=== PATIENT | female | born 1980 | race Caucasian/White ===

== ENCOUNTER 2024-06-15 11:24 | Emergency (ER) | payer MEDICAID, SELFPAY ==
--- NOTE | ~2024-06-15 | US_ITS ---
EXAMINATION: US TRIPLEX LOWER EXTREMITY, LEFT CLINICAL INFORMATION: Left calf pain, recent travel, rule out DVT. COMPARISON: None available. TECHNIQUE: Color-flow triplex imaging with spectral analysis and compression Doppler were performed on the left lower extremity. FINDINGS: Respiratory variation, normal compression and augmented flow are noted throughout the left lower extremity. The visualized common femoral vein, superficial femoral vein, profunda femoral vein, popliteal vein and midcalf peroneal and posterior tibial venous segments show no evidence of deep venous thrombosis. There is no Rock's cyst. US/US venous duplex LE LT IMPRESSION: No evidence of deep venous thrombosis involving the left lower extremity. Electronically signed by: Phi Zamorano MD 06/15/2024 02:29 PM EDT
--- NOTE | ~2024-06-15 | XR_ITS ---
EXAMINATION: XR CHEST CLINICAL INFORMATION: chest pain COMPARISON: None available. TECHNIQUE: 2 views of the chest were obtained. FINDINGS: No significant abnormality is noted involving the heart, lungs, mediastinum, bony thorax or soft tissues. XR/XR chest 2V IMPRESSION: Unremarkable chest examination. Electronically signed by: Jonathan Osborne MD 06/15/2024 12:47 PM EDT RP
[2024-06-15 11:38] VITALS: BP 126/80; BP 151/75; PULSE 66; PULSE 76; RESP 18; TEMP 36.8; O2SAT 97; O2SAT 99; BMI 34.8
--- NOTE | 2024-06-15 11:42 | ECG_ITS ---
Test Reason : cp Blood Pressure : */* mmHG Vent. Rate : 64 BPM Atrial Rate : 64 BPM P-R Int : 140 ms QRS Dur : 86 ms QT Int : 396 ms P-R-T Axes : 29 40 28 degrees QTcB Int : 408 ms Normal sinus rhythm Normal ECG No previous ECGs available Referred By: Generic ED Physician Electronically Signed By: RIOS ALFARO
--- NOTE | 2024-06-15 11:42 | ED.CHESTPAIN ---
HPI - Chest Pain General Chief Complaint: Chest Pain Stated Complaint: CP X20M,SOB/RESOLVED PER EMS Time Seen by Provider: 06/15/24 11:37 Source: patient and EMS Mode of arrival: EMS Limitations: no limitations History of Present Illness ED Provider: ANGELA BEY PA-C HPI narrative: 44-year-old female presents to the ED today via ambulance for evaluation of chest pain that began approximately 20 minutes prior to arrival. Patient reports pressure/sharp sternal chest pain that radiated to her epigastric area and back with associated shortness of breath, improving since onset. She now only endorses slight discomfort to the area rated 3/10. Patient reports symptoms lasted for 20 minutes. Patient states that she was sitting at the time of symptom onset. Reports driving from [place] to [place] over night last night. She arrived around 0800 this morning and began to experience chest pain around 1100. Reports associated left calf discomfort described as a cramping sensation. Patient reports history of similar symptoms 1 year ago which resolved on their own. She did not seek medical attention at that time. Patient denies any fever, chills, cough, wheezing, N/V/D, urinary symptoms. Patient denies blood thinner use, tobacco use, alcohol use, or other illicit drugs. No hx of VTE. Admits mother had an NV in her 70's. No personal cardiac hx. Related Data Allergies Allergy/AdvReac Type Severity Reaction Status Date / Time No Known Allergies Allergy Unknown Verified 06/15/24 11:41 Review of Systems Review of Systems: Yes all other systems are reviewed and are negative [facility] Past Medical History Attestation statement: The following information was validated with the patient. Source: old records reviewed and nursing notes reviewed Social History Social History Smoked in Last 30 Days: No Use of substances other than those prescribed or required for medical reasons: No Advance Directives: No Advance Directives Information Provided: No Do you have a plan to hurt others: No Plan Patient : No Physical Exam Vital Signs: Vital Signs: Last Vital Signs Temp 98.3 F 06/15/24 11:38 Pulse 66 06/15/24 11:38 Resp 18 06/15/24 11:38 BP 126/80 06/15/24 11:38 Pulse Ox 99 06/15/24 11:38 O2 Del Method Room Air 06/15/24 11:38 BMI result Body Mass Index 34.8 Vital signs stable General: Well appearing, in no acute distress. Skin: Warm, dry, intact. No rashes or lesions. Head: Normocephalic, atraumatic. EENT: Hearing is intact b/l. Conjunctiva clear. Sclera is anicteric. Neck: Supple without LAD.? Cardiac: Chest wall symmetric. RRR. No TTP anterior chest Lungs: Normal respiratory effort without accessory muscle use. CTA bilaterally. Abdomen: Soft, non-tender, non-distended. No rebound tenderness or guarding. Positive BS x4. Back: No midline spinous or paraspinal tenderness. No step off deformity. Ext: +TTP of left calf. Upper and lower extremities atraumatic, without deformity, swelling or erythema. Full ROM throughout. Strength 5/5 throughout. Neuro: AOx3. Normal speech. Sensation intact to light touch. Course Course Course Narrative: 1442 -- CBC without leukocytosis or left shift. No anemia. H&H stable. Chemistry without acute electrolyte abnormality requiring intervention. No PEPE. Liver function WNL. Lipase WNL. Initial troponin WNL. Delta troponin pending. EKG showing normal sinus rhythm, rate of 64 beats per minute, no acute ischemic changes or ST elevations. Negative COVID, flu, RSV. Chest x-ray without infiltrate or consolidation to suggest pneumonia. No effusion. No cardiomegaly. Venous duplex without evidence of DVT. No Rock's cyst. Essentially unremarkable. > on re-evaluation, patient reports resolution of symptoms after receiving Tylenol. She states she feels well. Troponin pending. Anticipate discharge home. 1710 -- delta troponin flat. Patient has remained stable throughout ED visit today. Discussed worrisome signs and symptoms and when to return to the ED. All questions answered at this time. Patient is agreeable with disposition and stable for discharge. Medications Administered Discontinued Medications Generic Name Dose Route Start Last Admin Trade Name Freq PRN Reason Stop Dose Admin Acetaminophen 975 mg 06/15/24 12:40 06/15/24 12:58 Acetaminophen 325 Mg Tablet PO 06/15/24 12:41 975 mg ONCE ONE Administration Medical Decision Making Medical Decision Making MDM Narrative: 44-year-old female presents to the ED today via ambulance for evaluation of chest pain that began approximately 20 minutes prior to arrival. Vital signs stable. Not hypoxic or tachycardic. Afebrile. She is nontoxic appearing in no acute distress. On exam, there is no reproducible chest wall tenderness to palpation. RRR. No respiratory distress, no tripoding. Lungs are CTA bilaterally. There is mild tenderness over left calf without overlying skin changes. No pitting edema. History without high risk features (not substernal, no exertional component, not relieved with rest).? Minimal CAD risk factors (including age). Exam without evidence of volume overload. EKG without signs of active ischemia. HEART score: 1.? Given the timing of pain to ED presentation, plan to send delta troponin to evaluate for NSTEMI. Differential diagnosis also includes anemia, electrolyte abnormality, costochondritis, msk pain, pneumonia, pleurisy, GERD, PE, DVT Presentation not consistent with pneumothorax, thoracic aortic dissection, cardiac effusion or tamponade, myocarditis, pericarditis. Plan: labs, troponin, EKG, CXR, pain control, reassessment Differential Diagnosis Differential Diagnoses: The differential diagnosis associated with the presentation includes As above Admission/Observation Not indicated Lab Data MDM Lab Attestation statement: I reviewed the patient's lab results. As above 06/15/24 12:06 06/15/24 12:07 Labs: Lab Results 06/15/24 06/15/24 06/15/24 Range/Units 12:06 12:07 12:16 WBC 5.8 (4.8-10.8) X10*3/uL RBC 4.39 (4.20-5.50) X10*6/uL Hgb 12.5 (12.0-16.0) g/dl Hct 37.8 (37.0-47.0) % MCV 86.1 (80.0-98.0) fL MCH 28.5 (27.0-33.0) pg MCHC 33.1 (31.0-35.0) g/dl RDW 13.9 (11.0-16.0) % Plt Count 280 (160-400) X10*3/uL MPV 11.1 (9.4-12.3) fL Immature Gran % (Auto) 0.3 (0.0-0.4) % Neut % (Auto) 62.8 (45-73) % Lymph % (Auto) 25.9 (20-40) % Howard % (Auto) 7.3 (2-11) % Eos % (Auto) 3.0 (0-4) % Baso % (Auto) 0.7 (0-2) % Lymph # (Auto) 1.5 (1.2-4.9) X10*3/uL Howard # (Auto) 0.4 (0.1-1.2) X10*3/uL Eos # (Auto) 0.2 (0.0-0.4) X10*3/uL Baso # (Auto) 0.0 (0.0-0.2) X10*3/uL Abs Immat Gran (auto) 0.02 (0.00-0.03) X10*3/uL Absolute Neuts (auto) 3.6 (2.0-8.3) x10*3/uL Absolute Nucleated RBC 0.000 (0.0-0.012) X10*3/uL Nucleated RBC % (auto) 0.0 (0.0-0.2) /100WBC D-Dimer High Sensitivty < 150 NG/ML Sodium 140 (135-145) mmol/L Potassium 4.2 (3.3-5.1) mmol/L Chloride 105 (96-108) mmol/L Carbon Dioxide 28 (22-29) mmol/L Anion Gap 11 L (12-20) BUN 9 (9-16) mg/dL Creatinine 0.79 (0.5-1.4) mg/dL Estim Creat Clear Calc 109.3 Estimated GFR > 60 Random Glucose 110 (60-115) mg/dL Calcium 9.4 (8.4-10.2) mg/dL Magnesium 1.9 (1.6-2.6) mg/dL Total Bilirubin 0.2 (0.0-1.0) mg/dL AST 23 (5-31) U/L ALT 26 (0-31) U/L Troponin I High Sens < 2.7 (<3.5-17.0) ng/L Total Protein 7.0 (6.5-8.0) g/dL Albumin 4.2 (3.5-5.0) g/dL Lipase 21 (8-78) U/L Influenza Type A (PCR) NEGATIVE (Negative) Influenza Type B (PCR) NEGATIVE (Negative) RSV RNA Qual (PCR) NEGATIVE (Negative) SARS-CoV-2 RNA (RT-PCR) NEGATIVE (Negative) 06/15/24 Range/Units 15:18 WBC (4.8-10.8) X10*3/uL RBC (4.20-5.50) X10*6/uL Hgb (12.0-16.0) g/dl Hct (37.0-47.0) % MCV (80.0-98.0) fL MCH (27.0-33.0) pg MCHC (31.0-35.0) g/dl RDW (11.0-16.0) % Plt Count (160-400) X10*3/uL MPV (9.4-12.3) fL Immature Gran % (Auto) (0.0-0.4) % Neut % (Auto) (45-73) % Lymph % (Auto) (20-40) % Howard % (Auto) (2-11) % Eos % (Auto) (0-4) % Baso % (Auto) (0-2) % Lymph # (Auto) (1.2-4.9) X10*3/uL Howard # (Auto) (0.1-1.2) X10*3/uL Eos # (Auto) (0.0-0.4) X10*3/uL Baso # (Auto) (0.0-0.2) X10*3/uL Abs Immat Gran (auto) (0.00-0.03) X10*3/uL Absolute Neuts (auto) (2.0-8.3) x10*3/uL Absolute Nucleated RBC (0.0-0.012) X10*3/uL Nucleated RBC % (auto) (0.0-0.2) /100WBC D-Dimer High Sensitivty NG/ML Sodium (135-145) mmol/L Potassium (3.3-5.1) mmol/L Chloride (96-108) mmol/L Carbon Dioxide (22-29) mmol/L Anion Gap (12-20) BUN (9-16) mg/dL Creatinine (0.5-1.4) mg/dL Estim Creat Clear Calc Estimated GFR Random Glucose (60-115) mg/dL Calcium (8.4-10.2) mg/dL Magnesium (1.6-2.6) mg/dL Total Bilirubin (0.0-1.0) mg/dL AST (5-31) U/L ALT (0-31) U/L Troponin I High Sens < 2.7 (<3.5-17.0) ng/L Total Protein (6.5-8.0) g/dL Albumin (3.5-5.0) g/dL Lipase (8-78) U/L Influenza Type A (PCR) (Negative) Influenza Type B (PCR) (Negative) RSV RNA Qual (PCR) (Negative) SARS-CoV-2 RNA (RT-PCR) (Negative) Independent Interpretation I performed an independent interpretation of an: EKG, Plain X-Ray and Ultrasound Interpretation: Chest x-ray without infiltrate or consolidation EKG showing normal sinus rhythm, rate of 64 beats per minute, no acute ischemic changes or ST elevations Venous duplex left lower extremity without clot Radiology Impression Discussion of test interpretation with radiology: I have reviewed the radiologist's reading. Radiologist Impression: Procedure(s): US venous duplex LE LT Accession Number(s): [id number] cc: Physician,Unknown ; Angela Bey~ EXAMINATION: US TRIPLEX LOWER EXTREMITY, LEFT CLINICAL INFORMATION: Left calf pain, recent travel, rule out DVT. COMPARISON: None available. TECHNIQUE: Color-flow triplex imaging with spectral analysis and compression Doppler were performed on the left lower extremity. FINDINGS: Respiratory variation, normal compression and augmented flow are noted throughout the left lower extremity. The visualized common femoral vein, superficial femoral vein, profunda femoral vein, popliteal vein and midcalf peroneal and posterior tibial venous segments show no evidence of deep venous thrombosis. There is no Rock's cyst. US/US venous duplex LE LT IMPRESSION: No evidence of deep venous thrombosis involving the left lower extremity. Electronically signed by: Phi Zamorano MD 06/15/2024 02:29 PM EDT Procedure(s): XR chest 2V Accession Number(s): [id number] cc: Physician,Unknown ; Angela Bey~ EXAMINATION: XR CHEST CLINICAL INFORMATION: chest pain COMPARISON: None available. TECHNIQUE: 2 views of the chest were obtained. FINDINGS: No significant abnormality is noted involving the heart, lungs, mediastinum, bony thorax or soft tissues. XR/XR chest 2V IMPRESSION: Unremarkable chest examination. Independent Historian Clinical information obtained from an independent historian. History obtained from or confirmed by: Spouse and Parent (mom) Prescription Management I considered prescription management with: Pain Medication Social Determinants Patient?s care significantly limited by Social Determinants of Health including: Other Social Determinant of Health Critical Care Time Critical Care Time Critical Care Time: No Discharge Plan Discharge Clinical Impression: Atypical chest pain Patient Disposition: Home, Self-Care Instructions: Noncardiac Chest Pain (ED), Chest Wall Pain (ED) Additional Instructions: You were evaluated in the Emergency Department today for chest pain. Your evaluation has shown no signs of medical conditions requiring emergent intervention at this time. Your labs are reassuring. Your chest x-ray is normal. You tested negative for COVID, flu, RSV. The ultrasound of your left leg is normal. You may take Tylenol or Motrin as needed for pain. I recommend that you follow up with your primary care provider or your outboard motor mechanic as soon as possible for further testing as an outpatient. If you do not have one, a referral has been provided. Please call them to make an appointment, they will not call you. Return to the Emergency Department if you experience worsening or uncontrolled chest pain, shortness of breath, light headedness, feeling faint, nausea, vomiting, or any other concerning symptoms. Referrals: Physician,Unknown J [Primary Care Provider] - Print Language: Welsh
[2024-06-15 12:12] LABS: MANUAL DIFF FLAG NO
[2024-06-15 12:15] LABS: Basophils Percent Auto 0.7 % (0-2); Eosinophils Absolute Auto 0.2 X10*3/uL (0.0-0.4); Hematocrit 37.8 % (37.0-47.0); Hemoglobin 12.5 g/dl (12.0-16.0); Imm Gran Abs Auto 0.02 X10*3/uL (0.00-0.03); Imm Gran Pct Auto 0.3 % (0.0-0.4); Lymphocytes Absolute Auto 1.5 X10*3/uL (1.2-4.9); Lymphocytes Percent Auto 25.9 % (20-40); Mean Corpuscular HGB Conc 33.1 g/dl (31.0-35.0); Mean Corpuscular Hemoglobin 28.5 pg (27.0-33.0); Mean Corpuscular Volume 86.1 fL (80.0-98.0); Mean Platelet Volume 11.1 fL (9.4-12.3); Monocytes Absolute Auto 0.4 X10*3/uL (0.1-1.2); Monocytes Percent Auto 7.3 % (2-11); Neutrophils Absolute Auto 3.6 x10*3/uL (2.0-8.3); Neutrophils Percent Auto 62.8 % (45-73); Platelet Count 280 X10*3/uL (160-400); Red Blood Count 4.39 X10*6/uL (4.20-5.50); Red Cell Distribution Width 13.9 % (11.0-16.0); White Blood Count 5.8 X10*3/uL (4.8-10.8)
[2024-06-15 12:29] LABS: Anion Gap 11 (12-20)
[2024-06-15 12:37] LABS: D Dimer High Sensitivity < 150 NG/ML
[2024-06-15 12:46] LABS: Alanine Aminotransferase 26 U/L (0-31); Albumin Level 4.2 g/dL (3.5-5.0); Aspartate Amino Transferase 23 U/L (5-31); Bilirubin Total 0.2 mg/dL (0.0-1.0); Blood Urea Nitrogen 9 mg/dL (9-16); Calcium 9.4 mg/dL (8.4-10.2); Carbon Dioxide 28 mmol/L (22-29); Chloride 105 mmol/L (96-108); Creatinine Clr Calc Pharmacy 109.3; Estimated Glomerular Filt Rate > 60; Glucose Random 110 mg/dL (60-115); Magnesium 1.9 mg/dL (1.6-2.6); Potassium 4.2 mmol/L (3.3-5.1); Sodium 140 mmol/L (135-145); Troponin-I High Sensitivity < 2.7 ng/L (<3.5-17.0)
[2024-06-15] MEDS: Acetaminophen 325 MG TABLET 975 MG PO (12:58)
[2024-06-15 12:59] LABS: Influenza A PCR NEGATIVE (Negative); Influenza B PCR NEGATIVE (Negative); Resp Syncy Virus RNA Qual PCR NEGATIVE (Negative); SARS COV2 PCR INHOUSE NEGATIVE (Negative)
--- OUTSIDE RECORDS SUMMARY | 2024-06-15 13:41 | XMS_ITS | Data Portability ---
Author Organization [facility], [employer], Main Office Address [id number] [employer] [place] [address] Assessment Encounter Date Assessment Date Assessment LastModified by Organization Details LastModified Time 03/05/2022 03/05/2022 Annual gynecological exam performed. Patient will come back in a year unless there are new symptoms. Pleasant 41 yo female coming as a new patient for [employer] Reports h/o hyperlipidemia, hypothyroidism, AUB Menstrual periods are regular, but painful, heavy with clots. It last 6 days from which 3 days is heavy PSH: lipo, 1 C-sec and tubal ligation She is sexually active reports on and off pain with sexul intercourse Last pap: > 15 years ago Mammogram; Never Denies h/o fibroids and or endometriosis Patient is a former smoker Exam: Probably Nabothian cysts in the cervix Plan/Assessment: 1. menorrhagia: TVUS ordered depending on results will discuss possible OCPs and or tranexamic acid for the first 3 days of her menstrual period 2. Referred to GI for screening colonoscopy (Mom h/o Colon CA) 3. Referred to Genetic counseling (Mom and maternal aunt H/O Breast CA) 4. Screening mammogram to be done around 06/2022 5. Pap obtained 6. patient will be called with test results [email or web address] Not available 03/05/2022 10:00:44 Plan of Treatment Reminders Order Date Submit Date Provider Last Modified By Organization Details Last Modified Time Details Appointments None recorded. Lab pap, LB + HPV mRNA E6/E7 + reflex HPV (16+18+45) 2022 023 [facility], [address] [place], [address], 3 04:34:39 Referral genetic counselor referral 2022 023 [email or web address] Not available 3 11:23:08 gastroenter ologist referral - family history of colon cancer / mother 2022 023 [email or web address] Not available 3 12:17:11 Procedures None recorded. Surgeries None recorded. Imaging MAMMO, screening, digital, bilateral - to done after 06-11-20222022 023 [email or web address] Formerly [facility] [place], [address], [place], [address], 3 09:36:00 US, transvagina l 2022 023 [email or web address] Formerly [facility] [place], [address], [place], [address], 3 11:22:34 Medication Orders None recorded. Patient TargetsNo targets recorded. Patient InstructionsNo instructions recorded. 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 Referral for Screening for malignant neoplasm of colon family history of colon cancer / mother Referring Physician: Taurus Judd, Encounter Date: 03/05/2022 Genetic Counselor Referral f or Family history of breast cancer Referring Physician: Taurus Judd, Encounter Date: 03/05/2022 Results Created Date Observation Date Name Description Value Unit Range Abnormal Flag Note LastModifiedBy Organization Detail LastModifiedTime 03/05/1903/08/2022 THINP REP PAP AND HPV MRNA E6/E7 W/RFL HPV 16,18 /45 clinical information: normal None given Not Available [facility] [place] [facility] [address] [place], [address], 03/08/2022 04:34:39 03/05/19 23 03/08/2022 THINP REP PAP AND HPV MRNA E6/E7 W/RFL HPV 16,18 /45 LMP: normal None given Not Available [facility] [place] [facility] [address], [place], [address], 03/08/2022 04:34:39 03/05/1903/08/2022 THINP REP PAP AND HPV MRNA E6/E7 W/RFL HPV 16,18 /45 prev. Pap: normal 02/19 Not Available [facility] [place] [facility] [address], [place], [address], 03/08/2022 04:34:39 03/05/19 23 03/08/2022 THINP REP PAP AND HPV MRNA E6/E7 W/RFL HPV 16,18 /45 prev. BX: normal None given Not Available [facility] [place] [facility] [address], [place], [address], 03/08/2022 04:34:39 03/05/1903/08/2022 THINP REP PAP AND HPV MRNA E6/E7 W/RFL HPV 16,18 /45 source: normal Cervi x, Endoc ervix Not Available [facility] [place] [facility] [address], [place], [address], 03/08/2022 04:34:39 03/05/1903/08/2022 THINP REP PAP AND HPV MRNA E6/E7 W/RFL HPV 16,18 /45 statement of adequacy: normal Satis facto ry for evalu ation . Endoc ervic al/tr ansfo rmati on zone compo nent prese nt. Age and/o r menst rual statu s not provi ded Not Available [facility] [place] [facility] [address], [place], [address], 03/08/2022 04:34:39 03/05/1903/08/2022 THINP REP PAP AND HPV MRNA E6/E7 W/RFL HPV 16,18 /45 interpretati on/result: normal Negat darling for intra epith elial lesio n or malig samantha . Not Available [facility] [place] [facility] [address], [place], [address], 03/08/2022 04:34:39 03/05/19 23 03/08/2022 THINP REP PAP AND HPV MRNA E6/E7 W/RFL HPV 16,18 /45 cytotechnolo gist: normal DXN, CT( CP) Scree jennifer Locat ion: [facility] [place] [address] [place] [address] Not Available [facility] [place] [facility] [address], [place], [address], 03/08/2022 04:34:39 03/05/19 23 03/08/2022 THINP REP PAP AND HPV MRNA E6/E7 W/RFL HPV 16,18 /45 comment EXPLA NATXIAO Y NOTE: The Pap is a scree jennifer test for cervi hardeep cance r. It is not a diagn ostic test and is subje ct to false negat darling and false posit darling resul ts. It is most relia ble when a satis facto ry sampl e, regul preethi obtai misty, is submi tted with relev ant clini hardeep findi ngs and histo ry, and when the Pap resul t is evalu ated along with histo paul and curre nt clini hardeep infor matio n. Not Available [facility] [place] [facility] [address], [place], [address], 03/08/2022 04:34:39 03/05/19 23 03/08/2022 THINP REP PAP AND HPV MRNA E6/E7 W/RFL HPV 16,18 /45 HPV MRNA E6/E7 Not Detect ed not detect ed normal Metho dolog y: Trans cript ion-M ediat ed Ampli ficat ion This assay detec ts E6/E7 viral messe nger RNA (mRNA ) from 14 high- risk HPV types (16,1 8,31, 33,35 ,39,4 5,51, 52,56 ,58,5 9,66, 68). Cervi hardeep sourc es are requi red for HPV testi ng. If a vagin al sourc e from a patie nt who has had a total hyste recto my with remov al of cervi x was submi tted, pleas e conta ct the testi ng labor atory for alter nativ e testi ng optio ns. For addit ional infor nathalie patetn e refer to http: //[facility] stdia gnost ics.c om/fa q/FAQ 129v1 (This link if provi ded for infor kalie rome/ educa jorge l purpo ses only. ) Not Available [facility] [place] [facility] [address], [place], [address], 03/08/2022 04:34:39 07/05/19 23 07/03/2022 MAMMO , scree jennifer, digit al, bilat eral No observ ation record ed. [email or web address] [facility] [address], [place], [address], 07/12/2022 11:43:34 07/10/19 23 07/03/2022 US, trans vagin al No observ ation record ed. [facility] [employer] [facility] [place] [address], [place], [address], 07/19/2022 09:30:50 07/26/19 23 07/25/2022 US, breas t, unila teral No observ ation record ed. [email or web address] [facility] [place] [address], [place], [address], 07/31/2022 12:22:38 Result Notes None recorded. Problems Name Problem SNOMED Code Status Onset Date Resolution Date Notes Provider Name and Address Organization Details Recorded Time Hypothyroidism 89322702 Active 2022 DIVYA Bundy [facility], [facility] 3 09:23:21 Hyperlipidemia 20288444 Active 2022 DIVYA Bundy [facility], [facility] 3 09:23:32 Problem Notes None recorded. Procedures Surgical History Date Name Laterality Status Provider Name and Address Organization Details Recorded Time 02/10/19 21 liposuction of subcutaneous tissue completed [facility] 03/05/2022 09:25:57 02/10/19 10 Date of Last Pap Smear completed [facility] 03/05/2022 09:26:43 Appendectomy completed [facility] 03/05/2022 09:15:04 Tubal Ligation completed [facility] 03/05/2022 09:15:04 Caesarean Section completed [facility] 03/05/2022 09:15:04 Imaging Results Imaging Date Name Status LastModified by Organization Details LastModified Time 07/03/2022 MAMMO, screening, digital, bilateral completed [email or web address] [facility] [address], [place], [address], 07/12/2022 11:43:34 07/03/2022 US, transvaginal completed [email or web address] Breast [facility] Resident [facility] Coord[facility] [place] [address], [place], [address], 07/19/2022 09:30:50 07/25/2022 US, breast, unilateral completed [email or web address] [facility] [place] [address], [place], [address], 07/31/2022 12:22:38 Procedure Notes None recorded. Medical Equipment None Reported. Allergies No known drug allergies Medications Name Sig Start Date Stop Date Status Note LastModified by Organization Details LastModified Time ibuprofen 800 mg tablet TAKE 1 TABLET BY MOUTH EVERY 8 HOURS NEEDED FOR PAIN 03/05 completed Not Available Not Available Not Available orphenadrin e citrate ER 100 mg tablet,exte nded release TAKE 1 TABLET BY MOUTH TWICE A DAY 03/05 completed Not Available Not Available Not Available diclofenac potassium 50 mg tablet TAKE 1 TABLET BY MOUTH TWICE A DAY 03/05 completed Not Available Not Available Not Available Unithroid 100 mcg tablet TAKE 1 TAB ONCE DAILY FRI- FRI AND 1/2 TAB ON FRIDAY active Not Available Not Available No t Available ibuprofen 600 mg tablet TAKE 1 TABLET BY MOUTH EVERY 6 HOURS NEEDED FOR ABDOMINAL PAIN 03/05 completed Not Available Not Available Not Available metformin ER 500 mg tablet,exte nded release 24 hr TAKE 2 TABLETS BY MOUTH EVERY DAY WITH DINNER DONT CRUSH, CHEW, OR SPLIT 03/05 completed Not Available Not Available Not Available amoxicillin 500 mg-potassiu m clavulanate 125 mg tablet TAKE 1 TABLET BY MOUTH THREE TIMES A DAY 03/05 completed Not Available Not Available Not Available rosuvastati n 10 mg tablet TAKE 1 TABLET BY MOUTH 1 TIME EACH DAY. active Not Available Not Available No t Available Vitals Date Recorded Respiratory rate Body weight Body mass index (BMI) Body height Heart rate Systolic blood pressure Diastolic blood pressure Provider Name and Address Organization Details Last Updated DateTime 3 16 /min 06879.5 g 32.5 kg/m2 167.64 cm 57 /min 113 mm[Hg] 81 mm[Hg] Ashley STOKES Gomez [facility] [employer] [facility] 09:30:06 Social History Question Answer Notes LastModified by [employer] Details LastModified Time Tobacco Smoking Status Former Smoker Ashley linares [facility] [employer] [facility] [employer], [facility] 03/05/2022 09:25:19 Do You Have An Advance Directive? No cullen Information not available 03/05/2022 Are You Sexually Active? No [email or web address] Information not available 03/05/2022 Sex: Unknown Functional Status Question Answer Note LastModified by [employer] Details LastModified Time What is your exercise level? Occasional Information not available 03/05/2022 Mental Status None recorded. Family History Relationship Description Onset Age of this Age Resolved Age Notes LastModified by Organization Details LastModified Time Father Family history of malignant neoplasm [email or web address] Not available 2022 09:15:04 Sister Family history of malignant neoplasm skin cancer [email or web address] Not available 03/05/2022 09:24:13 Maternal Aunt Malignant tumor of breast [email or web address] Not available 2022 09:24:30 Mother Malignant tumor of breast at age of 60 Not available 03/05/2022 09:25:08 Medical History Condition Response Allergies (Food, seasonal, environmental ) N Heart Problems N Hepatitis/Liver Disease N Acid Reflux (GERD) N Thyroid Problems Y Abuse/Domestic Violence N Anemia N High Cholesterol Y Heart Disease N Gynecological History Statement/Question Response Have you had surgery for Endometriosis? N Abnormal Pap Y Flow Heavy Date of LMP 02/23/2022 STIs/STDs N HPV Vaccine N Duration of Flow (days) 6 Current Control Method Tubal Ligat ion Age at First Child 19 Sexually Active? Y Menses Monthly Y Date of Last Pap Smear 02/10/2009 LMP Approximate Obstetrics History GPAL:G 4 P 0 0 1 3 Type Value Induced 1 Living 3 Total 4 Past Encounters Encounter ID Performer Location Encounter Start Date Encounter Closed Date Diagnosis/Indication Diagnosis SNOMED-CT Code Diagnosis ICD10 Code Diagnosis Note [id number] Tasneem Spencer APRN Main Office [id number] [facility] [place] [address] 03/05/2022 09:12:16 03/05/2022 10:03:36 Gynecologic examination 27126265 Z01.419 Menorrhagia 229127060 N9 2.0 Screening mammography 24 361402 Z12.31 Screening for malignant neoplasm of colon 583013626 Z12.11 Mom h/o colon CA Family his tory of breast cancer 107265133 Z80.3 Mom h/o breast and colon CA Health Concerns Section Related Observation LastModified by Organization Detai ls LastModified Time None Recorded Concern Status LastModified by Organization Details LastModified Time None Recorded Advance Directives Directive N: Payers Encounter Date Sequence Insurance Name Policy Number Policy Almendarez Covered Member ID Almendarez Member ID Guarantor Name 03/05/2022 1 [facility] [id number] Kimberley Horne [id number] Kimberley Horne Notes Date Note Type Note Provider Name a nd Address Organization Details Recorded Time 03/05/2022 text/html 41 y/o new patient here for [employer], feeling well Tasneem Spencer APRN [address] [place], [address], [facility], [facility] 03/05/2022 10:01:13 OBGyn Episode No OBEpisode recorded.
--- OUTSIDE RECORDS SUMMARY | 2024-06-15 13:41 | XMS_ITS | Clinical Summary ---
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 11/11/2023 Active levothyroxine (Synthroid, Levoxyl) 125 MCG tablet Take 1 tablet (125 mcg total) by mouth 1 (one) time each day in the morning. 90 tablet 1 01/19/2024 07/17/2024 Active Active Problems Problem Noted Date Diagnosed Date Nontoxic goiter, unspecified 10/22/2021 Mixed hyperlipidemia 10/22/2021 Hypothyroidism 04/11/2020 Family History Medical History Relation Name Comments Breast cancer Mother Breast cancer Mother's Sister Breast cancer Sister Relation Name Status Comments Mother Mother's Sister Sister Social History Tobacco Use Types Packs/Day Years Used Date Smoking Tobacco: Never Smokeless Tobacco: Never Tobacco Cessation:Counseling Given: Not Answered Alcohol Use Standard Drinks/Week Comments Never 0 (1 standard drink = 0.6 oz pur e alcohol) [facility] Housing Answer Date Recorded Living Situation Not on file 09/25/2022 Housing Problems Not on file 09/25/2022 [facility] Safety Answer Date Recorded Threatened Not on file 09/25/2022 Insulted Not on file 09/25/2022 Physically Hurt Not on file 09/25/2022 Scream Not on file 09/25/2022 Sex and Gender Information Value Date Recorded Sex Assigned at Not on file Gender Identity Not on file Sexual Orientation Not on file Last Filed Vital Signs Vital Sign Reading Time Taken Comments Blood Pressure 124/82 02/13/2024 10:15 PM EST Pulse 69 02/13/2024 10:15 PM EST Temperature 36.9 ??C (98.4 ??F) 02/13/2024 10:[address] Respiratory Rate 16 02/13/2024 10:15 PM EST Oxygen Saturation 100% 02/13/2024 10:15 PM EST Inhaled Oxygen Concentration - - Weight 90.7 kg (200 lb) 02/13/2024 5:26 PM EST Height 167.6 cm (5' 6 ) 02/13/2024 5:26 PM EST Body Mass Index 32.28 02/13/2024 5:26 PM EST Plan of Treatment Upcoming Encounters Date Type Department Care Team (Late st Contact Info) Description 09/07/2024 12:40 PM EDT Office Visit [facility] Diabetes [facility]ocr[facility] [place] [address] [facility] [address] [place] [phone] Kong Jones MD [address] [facility] [address] [place] [id number] Health Maintenance Due Date Last Done Comments HIV Screening 1982 MMR Vaccines (1 of 1 - Standard series) 06/12/1983 Annual Physical 12/12/1984 Varicella Vaccines (1 of 2 - 13+ 2-dose series) 06/12/1995 DTaP/Tdap/Td Vaccines (1 - Tdap) 2001 Hepatitis B Vaccines (1 of 3 - 19+ 3-dose series) 2001 Pap Smear 06/12/2003 Mammogram 07/05/2023 07/04/2022, 07/03/2022 COVID-19 Vaccine ( - season) 2023 11/25/2020, 10/28/2020 Influenza Vaccine (Season Ended) 2024 TSH Level 03/05/2025 03/05/2024, 12/0 07/2023, 08/05/2022, Additional history exists Cervical Cancer Screening 03/08/2027 HPV/Cotest 03/08/2027 03/08/2022 Zoster Vaccines (1 of 2) 2032 Respiratory Syncytial Virus (RSV) 60 years and older and/or patients (1 - 1-dose 75+ series) 2057 HPV Vaccines Aged Out No longer eligi ble based on patient's age to complete this topic Hepatitis A Vaccines Aged Out No long er eligible based on patient's age to complete this topic Meningococcal B Vaccine Aged Out No l onger eligible based on patient's age to complete this topic Meningococcal Vaccine Aged Out No gricel kassi eligible based on patient's age to complete this topic Pneumococcal: Pediatrics (0 to 5 Yrs) and At-Risk Patients (6 to 49 Years) Aged Out No longer eligi ble based on patient's age to complete this topic Respiratory Syncytial Virus (RSV) <20 months Aged Out No longer eligible based on patient's age to complete this topic Procedures Procedure Name Priority Date/Time Associated Diagnosis Comments TSH Routine 03/05/2024 7:19 AM EST 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 Ranges ?First trimester ?0.26-2.66 ?Second trimester ?? 0.55-2.73 ?Third trimester ?0.43-2.91 Blood Venous blood specimen / Unknown 03/05/2024 7:19 AM EST 03/05/2024 7:19 AM EST Narrative BABATUNDE JOHNSON-MAMIE - 03/06/2024 1:29 AM EST FASTING:YES FASTING: YES Kong Jones MD LAB BLOOD ORDERABLE S [facility]ONT[facility] [address] [place] [address] * (ABNORMAL) BI Mammogram Screening W Tomosynthesis Bilateral (07/03/2022 5:11 PM EDT) Anatomical Region Laterality Modality Breast Bilateral Mammography Impressions 07/04/2022 1:40 PM EDT Probable lymph node within the left breast axillary tail. RECOMMENDED FOLLOWUP: Given the strong family history of breast neoplasm, recommend further evaluation with targeted left breast ultrasound. BI-RADS category: 0: Incomplete - Need additional imaging evaluation. AUTOMATED TRACKING RECOMMENDATIONS: Additional US Breast: Left Incomplete Reason: Need additional imaging evaluation. Created by: Willis Escobar DO Signed by: Willis Escobar DO Signed on: 07/04/2022 13:40 EDT Location: [facility] ?? Narrative 07/04/2022 1:40 PM EDT ??EXAM: ??MA DIGITAL SCREENING 3D TOMOSYNTHESIS MAMMO-BILATERAL INDICATION: Screening. COMPARISON: No prior TECHNIQUE: Craniocaudal and mediolateral oblique digital tomosynthesis images of both breasts were obtained. Synthesized 2D images were reviewed. DENSITY: C - The breast(s) are heterogeneously dense which may obscure small masses. FINDINGS: No suspicious masses, tissue distortion, or suspicious calcifications are identified in the right breast. There is a 6 mm ovoid isodense mass within the left breast axillary tail. Procedure Note Willis Escobar DO - 07/04/2022 EXAM: MA DIGITAL SCREENING 3D TOMOSYNTHESIS MAMMO-BILATERAL INDICATION: Screening. COMPARISON: No prior TECHNIQUE: Craniocaudal and mediolateral oblique digital tomosynthesisimages of both breasts were obtained. Synthesized 2D images werereviewed. DENSITY: C - The breast(s) are heterogeneously dense which may obscuresmall masses. FINDINGS: No suspicious masses, tissue distortion, or suspiciouscalcifications are identified in the right breast. There is a 6 mm ovoid isodense mass within the left breast axillarytail. IMPRESSION: Probable lymph node within the left breast axillary tail. RECOMMENDED FOLLOWUP: Given the strong family history of breast neoplasm,recommend further evaluation with targeted left breast ultrasound. BI-RADS category: 0: Incomplete - Need additional imaging evaluation. AUTOMATED TRACKING RECOMMENDATIONS: Additional US Breast: Left Incomplete Reason: Need additional imaging evaluation. Created by: Willis Escobar DO Signed by: Willis Escobar DO Signed on: 07/04/2022 13:40 EDT Location: [facility] Tasneem Spencer HOT MOLDER IMG BI PROCEDURE S from Last 3 Months or Most Recently Relevant to Health Maintenance Care Teams Small Parts Shaper Operator Relationship Specialty Start Date End Date Prudence Agarwal MD PCP - General Internal Medicine 10/29/23
--- OUTSIDE RECORDS SUMMARY | 2024-06-15 13:41 | XMS_ITS | Continuity of Care Document ---
Author Organization [facility] Address [address] [place] [address] Phone Care Team Providers Care Staff Midwife/Apprenticeship Director Name Role Phone Hiam LASSITER, Hannah Unavailable Unavailable Allergies, Adverse Reactions, Alerts Substance Reaction Status Criticality No Known allergies Medications Medication Instructions Dosage Effective Dates (start - stop) Status Comments Bactrim DS 800 mg-160 mg Tab take 1 tablet by oral route every 12 hours 1.00 tablet - Active Monistat 3 200 mg Vaginal Suppository insert 1 suppository (200MG) by vaginal route every day for 3 days at bedtime for 112.1 - No Longer Active Procedures Procedure Date Cult, pathgnc orgnsm, screen Preventive checkup, est,18-39 yrs Lipid profile Urinalysis HIV-1/HIV-2, SINGLE ASSAY Cult, bactr, ident isolate, urine RPR/VDRL Results Test Name Date and Time Measure Units Reference Range Abnormal Flag Status Comments Panel Description: LIPID PANEL Final CHOLESTEROL, TOTAL 01:48:00 144 mg/dL 125-200 N Final Panel Description: LIPID PANEL Final CHOLESTEROL, TOTAL 19:09:00 144 mg/dL 125-200 N Final Panel Description: LIPID PANEL Final CHOLESTEROL, TOTAL 14:25:00 144 mg/dL 125-200 N Final Panel Description: LIPID PANEL Final CHOLESTEROL, TOTAL 04:37:00 144 mg/dL 125-200 N Final Panel Description: LIPID PANEL Final HDL CHOLESTEROL 01:48:00 31 mg/dL > OR = 46 L Final Panel Description: LIPID PANEL Final HDL CHOLESTEROL 19:09:00 31 mg/dL > OR = 46 L Final Panel Description: LIPID PANEL Final HDL CHOLESTEROL 14:25:00 31 mg/dL > OR = 46 L Final Panel Description: LIPID PANEL Final HDL CHOLESTEROL 04:37:00 31 mg/dL > OR = 46 L Final Panel Description: LIPID PANEL Final TRIGLYCERIDES 01:48:00 213 mg/dL <150 H Final Panel Description: LIPID PANEL Final TRIGLYCERIDES 19:09:00 213 mg/dL <150 H Final Panel Description: LIPID PANEL Final TRIGLYCERIDES 14:25:00 213 mg/dL <150 H Final Panel Description: LIPID PANEL Final TRIGLYCERIDES 04:37:00 213 mg/dL <150 H Final Panel Description: LIPID PANEL Final LDL-CHOLESTEROL 01:48:00 70 mg/dL (calc) <130 N Final Desirable range <100 mg/dL for patients with CHD ordiabetes and <70 mg/dL for diabetic patients withknown heart disease. Panel Description: LIPID PANEL Final LDL-CHOLESTEROL 19:09:00 70 mg/dL (calc) <130 N Final Desirable range <100 mg/dL for patients with CHD ordiabetes and <70 mg/dL for diabetic patients withknown heart disease. Panel Description: LIPID PANEL Final LDL-CHOLESTEROL 14:25:00 70 mg/dL (calc) <130 N Final Desirable range <100 mg/dL for patients with CHD ordiabetes and <70 mg/dL for diabetic patients withknown heart disease. Panel Description: LIPID PANEL Final LDL-CHOLESTEROL 04:37:00 70 mg/dL (calc) <130 N Final Desirable range <100 mg/dL for patients with CHD ordiabetes and <70 mg/dL for diabetic patients withknown heart disease. Panel Description: LIPID PANEL Final CHOL/HDLC RATIO 01:48:00 4.6 (calc) < OR = 5.0 N Final Panel Description: LIPID PANEL Final CHOL/HDLC RATIO 19:09:00 4.6 (calc) < OR = 5.0 N Final Panel Description: LIPID PANEL Final CHOL/HDLC RATIO 14:25:00 4.6 (calc) < OR = 5.0 N Final Panel Description: LIPID PANEL Final CHOL/HDLC RATIO 04:37:00 4.6 (calc) < OR = 5.0 N Final Panel Description: LIPID PANEL Final NON-HDL CHOLESTEROL 01:48:00 113 mg/dL (calc) Final Target for non-HDL cholesterol is 30 mg/dL higher thanLDL cholesterol target. Panel Description: LIPID PANEL Final NON-HDL CHOLESTEROL 19:09:00 113 mg/dL (calc) Final Target for non-HDL cholesterol is 30 mg/dL higher thanLDL cholesterol target. Panel Description: LIPID PANEL Final NON-HDL CHOLESTEROL 14:25:00 113 mg/dL (calc) Final Target for non-HDL cholesterol is 30 mg/dL higher thanLDL cholesterol target. Panel Description: LIPID PANEL Final NON-HDL CHOLESTEROL 04:37:00 113 mg/dL (calc) Final Target for non-HDL cholesterol is 30 mg/dL higher thanLDL cholesterol target. Panel Description: CHLAMYDIA/N. GONORRHOEAE DNA, SDA Final CHLAMYDIA TRACHOMATIS DNA, [facility] 01:48:00 NOT DETECTED NOT DETECTED N Final NEISSERIA GONORRHOEAE DNA, 01:48:00 NOT DETECTED NOT DETECTED N Final [id number] 01:48:00 Final This test was performed using the BD ProbeTec(TM) Chlamydia trachomatis and Neisseria gonorrhoeae Amplified DNA Assays. Panel Description: CHLAMYDIA/N. GONORRHOEAE DNA, SDA Final CHLAMYDIA TRACHOMATIS DNA, [facility] 19:09:00 NOT DETECTED NOT DETECTED N Final NEISSERIA GONORRHOEAE DNA, [facility] 19:09:00 NOT DETECTED NOT DETECTED N Final [id number] 19:09:00 Final This test was performed using the BD ProbeTec(TM) Chlamydia trachomatis and Neisseria gonorrhoeae Amplified DNA Assays. Panel Description: CHLAMYDIA/N. GONORRHOEAE DNA, SDA Final CHLAMYDIA TRACHOMATIS DNA, [facility] 14:25:00 NOT DETECTED NOT DETECTED N Final NEISSERIA GONORRHOEAE DNA, [facility] 14:25:00 NOT DETECTED NOT DETECTED N Final [id number] 14:25:00 Final This test was performed using the KIDOZ(TM) Chlamydia trachomatis and Neisseria gonorrhoeae Amplified DNA Assays. Panel Description: CHLAMYDIA/N. GONORRHOEAE DNA, SDA Preliminary CHLAMYDIA TRACHOMATIS DNA, [facility] 04:37:00 Preliminary NEISSERIA GONORRHOEAE DNA, [facility] 04:37:00 Preliminary Panel Description: RPR (MONITOR) W/REFL TITER F inal RPR (MONITOR) W/REFL TITER 01:48:00 NON-REACT RICKY NON-REACTI VE N Final Panel Description: RPR (MONITOR) W/REFL TITER F inal RPR (MONITOR) W/REFL TITER 19:09:00 NON-REACT RICKY NON-REACTI VE N Final Panel Description: RPR (MONITOR) W/REFL TITER P reliminary RPR (MONITOR) W/REFL TITER 14:25:00 Preliminary Panel Description: RPR (MONITOR) W/REFL TITER P reliminary RPR (MONITOR) W/REFL TITER 04:37:00 Preliminary Panel Description: Bacteria identified Final CULTURE, URINE, ROUTINE 01:48:00 Final CULTURE, URINE, ROUTINE MICRO NUMBER: [id number] TEST STATUS: FINAL SPECIMEN SOURCE: URINE SPECIMEN QUALITY: ADEQUATE RESULT: No Growth Panel Description: Bacteria identified Prelimin nathaly CULTURE 19:09:00 Preliminary Panel Description: Bacteria identified Prelimin nathaly CULTURE 14:25:00 Preliminary Panel Description: Bacteria identified Prelimin nathaly CULTURE 04:37:00 Preliminary Advance Directives Directive Yes / No Effective Date File Name Resuscitation Not Answered N/A N/A Life Support Not Answered N/A N/A Intubation Not Answered N/A N/A Antibiotics Not Answered N/A N/A IV Fluid Support Not Answered N/A N/A Tube Feed Not Answered N/A N/A Other Directive N/A N/A WARNING:The information contained in this section is historical and is provided for information only and does not constitute a legal document or any assurance that the information is still accurate. Please verify the information with the oscar of the legal document before using it for clinical purposes. Encounters Encounter Description Practice Location Reason(s) For Visit Diagnoses Date Provider Providers Copied on Encounter Preventive checkup, est,[age] yrs [facility], [address], [place], [id number], [place] tel:[phone] [facility] lesion on vaginal (chief complaint) Routine Medical ExamUrinary Tract InfectionSCREE N FOR VENERAL DIS 2 [address] Young. [address], [place], [id number], [place]. tel:[phone] Family History Family Member Type Diagnosis Age At Onset Problem (finding) No family history of Hy pertension Problem (finding) No family history of Di abetes mellitus Payers Payer name Insurance type Covered democrat ID Authoriza tion(s) No Information Social History Type Description Quantity Date Captured Comments Alcohol Use Details No Caffeine Use Details soda Tobacco Use Status No Information Smoking Status No Information Non-Smoking Tobacco Use Details : No Details Available : No Details Available Sex Female Vital Signs Date / Time: Height Weight BMI Pulse Rate Blood Pressure Temperature Respiratory Rate Body Surface Area Head Circumference Head Circ. Percentile Wt./Isaak. Percentile BMI percentile Pulse Ox Inhaled Ox 2:42 PM 58.00 in 150.00 lbs 31.3 5 kg/m eter (2) 71 /min 112/74 mm[Hg] 97.40 F 16 /min Chief Complaint And Reason For Visit From encounter dated '09/25/2011 14:40'. lesion on vaginal (chief complaint) Reason For Referral Reason For Referral No Information Plan Of Treatment Date Type Action Status Future Order: Lab Order Lipid Pa kimberly ([id number]), Collected on: Ordered Future Order: Lab Order Chlamydi a/GC, DNA Probe w/Rflx ([id number]), Collected on: Ordered Future Order: Lab Order Urine Cu lture, Routine ([id number]), Collected on: Ordered Future Order: Lab Order RPR ([id number]), C ollected on: Ordered History Of Present Illness Encounter Date Complaint History Of Prese nt Illness No Information Functional Status Date Functional Assessmen t No Information Instructions Date Instruction Additional Infor mation STD prevention educa tion, book from [facility] [place] today Related to SCREEN FOR VENERAL DIS IncreasePo fluids Related to Uri nary Tract Infection Void after sex recommended Relat ed to Urinary Tract Infection Wipe from front to back Related to Urinary Tract Infection Encurage increse activity Relate d to Routine Medical Exam Increase fiber and v egetables in every meal Related to Routine Medical Exam PHQ- 9 score=2 Related to Routi ne Medical Exam Assessments Type Assessment Date No Information Mental Status Date Cognitive Assessment Orientation - Cheraw ed to time, place, person, situation. Patient Care Teams Name Effective Dates (start - stop) Status Members No Information
[2024-06-15 16:01] LABS: Troponin-I High Sensitivity < 2.7 ng/L (<3.5-17.0)
[2024-06-15 17:10] LABS: Lipase 21 U/L (8-78)
[2024-06-15 17:13] VITALS: BP 132/76; PULSE 76; RESP 18; TEMP 36.6; O2SAT 98
[2024-06-15 17:15] VITALS: BP 132/76; PULSE 76; RESP 18; TEMP 36.6; O2SAT 98
[2024-06-15 17:29] LABS: Alkaline Phosphatase 64 U/L (39-117)
== END 2024-06-15 17:17 | disposition home or self-care (01) ==
PROVIDERS: Physician Assistant Medical; Emergency Provider Emergency Medicine Emergency Medical Services
DX: R07.89 Other chest pain (principal); R06.02 Shortness of breath; M79.662 Pain in left lower leg; Z03.818 Encounter for observation for suspected exposure to other biological agents ruled out
CPT/HCPCS: 0241U; 36415; 71046; 80053; 83690; 83735; 84484; 85025; 85379; 93005; 93971; 99284; 99285

== ENCOUNTER → 2024-06-15 11:42 | Outpatient (BNV) | payer SELFPAY | PROVIDERS: Emergency Provider Emergency Medicine Emergency Medical Services; Visit Provider Radiology Diagnostic Radiology | DX: M79.662 Pain in left lower leg (principal); R07.9 Chest pain, unspecified | CPT/HCPCS: 71046; 93971 ==

== ENCOUNTER → 2024-06-15 11:42 | Outpatient (BNV) | payer MEDICAID, SELFPAY | PROVIDERS: Emergency Provider Emergency Medicine Emergency Medical Services; Visit Provider Internal Medicine | DX: R07.9 Chest pain, unspecified (principal) | CPT/HCPCS: 93010 ==